=== PATIENT | male | born 1955 | race Caucasian/White ===

== ENCOUNTER 2020-01-02 16:56 | Inpatient (IN) ==
[2020-01-02] MEDS ORDERED: Naloxone 0.4 MG/ML INJ IVP PRN (22:36)
[2020-01-02 23:13] LABS: Basophils % 0.4 %; Eosinophils # 0.1 K/mcL (0.0-0.6); Eosinophils % 1.2 %; Hematocrit 38.5 % (37.5-50.1); Hemoglobin 13.3 g/dL (12.9-16.9); Immature Granulocytes % 0.2 % (0-4); Lymphocytes # 0.8 K/mcL (0.6-4.6); Lymphocytes % 16.6 %; Mean Corpuscular HGB Conc 34.5 g/dL (31.6-35.5); Mean Corpuscular Hemoglobin 28.7 pg (28.0-33.3); Mean Platelet Volume 11.9 fL (9.4-12.4); Monocytes # 0.4 K/mcL (0.0-1.3); Monocytes % 7.6 %; Neutrophils # 3.6 K/mcL (1.6-8.9); Platelet Count 165 K/mcL (140-400); Red Blood Count 4.64 M/mcL (4.19-5.50); Red Cell Distribution Width 13.3 % (11.5-14.5); White Blood Count 4.9 K/mcL (4.3-11.1)
[2020-01-02 23:32] LABS: Calcium 9.2 mg/dL (8.6-10.3); Potassium 4.3 mEq/L (3.5-5.1)
[2020-01-02] MEDS ORDERED: Insulin Human Regular 10 UNIT in 0.9 % Sodium Chloride 10 ML IV ONE (23:35)
[2020-01-02] MEDS ORDERED: Gadolinium Contrast Agent (WT Based) IV PRN (23:44)
[2020-01-03] MEDS ORDERED: *HR* Dextrose 50 % in Water (Vial) 50 ML VIAL IVP PRN (03:45)
[2020-01-03] MEDS ORDERED: D5% in Water 1,000 ML IVC PRN (03:45)
[2020-01-03] MEDS ORDERED: Dextrose Gel 15 GM/37.5 ML TUBE PO PRN ×2 (03:45)
[2020-01-03] MEDS ORDERED: Insulin LISPRO 300 UNITS/3 ML VIAL SQ SCH (06:00)
[2020-01-03 06:42] LABS: Basophils % 0.8 %; Eosinophils # 0.1 K/mcL (0.0-0.6); Eosinophils % 1.4 %; Hematocrit 36.7 % (37.5-50.1); Hemoglobin 12.4 g/dL (12.9-16.9); Immature Granulocytes % 0.4 % (0-4); Lymphocytes # 0.9 K/mcL (0.6-4.6); Lymphocytes % 18.9 %; Mean Corpuscular HGB Conc 33.8 g/dL (31.6-35.5); Mean Corpuscular Hemoglobin 28.2 pg (28.0-33.3); Mean Corpuscular Volume 83.4 fL (83.0-100.0); Mean Platelet Volume 12.3 fL (9.4-12.4); Monocytes # 0.5 K/mcL (0.0-1.3); Monocytes % 9.2 %; Neutrophils # 3.4 K/mcL (1.6-8.9); Platelet Count 148 K/mcL (140-400); Red Cell Distribution Width 13.2 % (11.5-14.5); Segmented Neutrophils % 69.3 %; White Blood Count 4.9 K/mcL (4.3-11.1)
[2020-01-03 07:03] LABS: Calcium 8.9 mg/dL (8.6-10.3); Potassium 4.2 mEq/L (3.5-5.1)
[2020-01-03] MEDS: Aspirin Enteric Coated 81 MG Tablet PO SCH (08:55)
[2020-01-03] MEDS: Spironolactone 25 MG TABLET PO SCH (08:55)
[2020-01-03] MEDS: Finasteride 5 MG TABLET PO SCH (08:55)
[2020-01-03] MEDS: Loratadine 10 MG TABLET PO SCH (08:56)
[2020-01-03] MEDS: Fenofibrate 54 MG TABLET PO SCH (08:56)
[2020-01-03] MEDS ORDERED: Insulin DETEMIR 100 UNIT/ML X5UNITS SQ ONE ×2 (09:00→18:00)
[2020-01-03] MEDS: DilTIAZem CD (24hr) 120 MG CAP.ER.24H PO SCH (09:02)
[2020-01-03] MEDS ORDERED: Acetaminophen 325 MG TABLET PO PRN (11:20)
[2020-01-03] MEDS: Insulin LISPRO 300 UNITS/3 ML VIAL SQ SCH ×3 (14:09→20:28)
[2020-01-03] MEDS: cefTRIAXone 1,000 MG in 0.9 % Sodium Chloride Mini Bag 100 ML IVPB SCH ×2 (14:10→22:22)
[2020-01-03 15:58] LABS: Bilirubin,Urine Negative (Negative); Blood,Urine Negative (Negative); Clarity,Urine Clear (Clear); Color,Urine Yellow (Yellow); Glucose,Urine (UA) >=1000 mg/dL (Normal); Ketones,Urine 10 mg/dL (Negative); Leukocyte Esterase,Urine Negative (Negative); Mucus,Urine Few per lpf (None-Few); Nitrite,Urine Negative (Negative); Protein,Urine >=300 mg/dL (Neg-Trace); Specific Gravity,Urine > 1.030 (1.010-1.025); Squamous Epithelial Cell,Urine Few per hpf (None-Few); Urobilinogen,Urine Normal (Normal); WBC,Urine 0-3 per hpf (0-3)
[2020-01-03] MEDS: *HR* OxyCODONE/APAP 5/325 TABLET PO PRN (16:29)
[2020-01-03] MEDS: Nicotine 21 MG PATCH.TD24 TD SCH (16:29)
[2020-01-03] MEDS: Pregabalin 75 MG CAPSULE PO SCH (20:28)
[2020-01-03] MEDS ORDERED: Insulin DETEMIR 100 UNIT/ML X5UNITS SQ SCH (21:00)
[2020-01-03] MEDS ORDERED: Morphine Sulfate 2 MG/ML SYRINGE IVP ONE (21:30)
[2020-01-04 03:41] LABS: Basophils % 0.8 %; Eosinophils # 0.1 K/mcL (0.0-0.6); Eosinophils % 2.3 %; Hematocrit 36.1 % (37.5-50.1); Hemoglobin 11.7 g/dL (12.9-16.9); Immature Granulocytes % 0.6 % (0-4); Lymphocytes # 0.9 K/mcL (0.6-4.6); Lymphocytes % 19.6 %; Mean Corpuscular HGB Conc 32.4 g/dL (31.6-35.5); Mean Corpuscular Hemoglobin 27.3 pg (28.0-33.3); Mean Corpuscular Volume 84.3 fL (83.0-100.0); Mean Platelet Volume 12.2 fL (9.4-12.4); Monocytes # 0.5 K/mcL (0.0-1.3); Monocytes % 11.4 %; Neutrophils # 3.1 K/mcL (1.6-8.9); Nucleated Red Blood Cells 0.4 /100 WBC (0); Platelet Count 155 K/mcL (140-400); Red Blood Count 4.28 M/mcL (4.19-5.50); Red Cell Distribution Width 13.4 % (11.5-14.5); Segmented Neutrophils % 65.3 %; White Blood Count 4.8 K/mcL (4.3-11.1)
[2020-01-04 03:44] LABS: Prothrombin Time 11.8 Seconds (9.4-12.1)
[2020-01-04 03:55] LABS: Estimated Average Glucose 352 mg/dl
[2020-01-04 03:59] LABS: Calcium 9.1 mg/dL (8.6-10.3); Potassium 4.1 mEq/L (3.5-5.1)
[2020-01-04] MEDS: Finasteride 5 MG TABLET PO SCH (09:24)
[2020-01-04] MEDS: *HR* OxyCODONE/APAP 5/325 TABLET PO PRN ×3 (09:24→21:14)
[2020-01-04] MEDS: Loratadine 10 MG TABLET PO SCH (09:24)
[2020-01-04] MEDS: Spironolactone 25 MG TABLET PO SCH (09:24)
[2020-01-04] MEDS: Fenofibrate 54 MG TABLET PO SCH (09:24)
[2020-01-04] MEDS: Aspirin Enteric Coated 81 MG Tablet PO SCH (09:24)
[2020-01-04] MEDS: Nicotine 21 MG PATCH.TD24 TD SCH (09:25)
[2020-01-04] MEDS: Pregabalin 75 MG CAPSULE PO SCH ×2 (09:25→20:59)
[2020-01-04] MEDS: DilTIAZem CD (24hr) 120 MG CAP.ER.24H PO SCH (09:25)
[2020-01-04] MEDS: Insulin LISPRO 300 UNITS/3 ML VIAL SQ SCH ×4 (09:27→22:47)
[2020-01-04] MEDS: cefTRIAXone 1,000 MG in 0.9 % Sodium Chloride Mini Bag 100 ML IVPB SCH ×2 (09:29→23:15)
[2020-01-04] MEDS: Nicotine 2 MG GUM BC PRN ×3 (11:51→15:39)
[2020-01-04] MEDS ORDERED: Insulin DETEMIR 100 UNIT/ML X5UNITS SQ SCH ×2 (21:00)
[2020-01-05 03:08] LABS: Basophils % 0.8 %; Eosinophils # 0.1 K/mcL (0.0-0.6); Eosinophils % 2.4 %; Hematocrit 34.5 % (37.5-50.1); Hemoglobin 11.2 g/dL (12.9-16.9); Immature Granulocytes % 0.5 % (0-4); Lymphocytes # 0.9 K/mcL (0.6-4.6); Lymphocytes % 23.9 %; Mean Corpuscular HGB Conc 32.5 g/dL (31.6-35.5); Mean Corpuscular Hemoglobin 27.1 pg (28.0-33.3); Mean Corpuscular Volume 83.5 fL (83.0-100.0); Mean Platelet Volume 12.2 fL (9.4-12.4); Monocytes # 0.5 K/mcL (0.0-1.3); Neutrophils # 2.2 K/mcL (1.6-8.9); Platelet Count 148 K/mcL (140-400); Red Blood Count 4.13 M/mcL (4.19-5.50); Red Cell Distribution Width 13.2 % (11.5-14.5); Segmented Neutrophils % 59.4 %; White Blood Count 3.7 K/mcL (4.3-11.1)
[2020-01-05 03:29] LABS: Potassium 4.7 mEq/L (3.5-5.1)
[2020-01-05] MEDS: Insulin LISPRO 300 UNITS/3 ML VIAL SQ SCH ×3 (08:15→20:31)
[2020-01-05] MEDS: Nicotine 21 MG PATCH.TD24 TD SCH (08:16)
[2020-01-05] MEDS: Aspirin Enteric Coated 81 MG Tablet PO SCH (08:18)
[2020-01-05] MEDS: Fenofibrate 54 MG TABLET PO SCH (08:18)
[2020-01-05] MEDS: DilTIAZem CD (24hr) 120 MG CAP.ER.24H PO SCH (08:18)
[2020-01-05] MEDS: Pregabalin 75 MG CAPSULE PO SCH ×2 (08:18→20:26)
[2020-01-05] MEDS: Finasteride 5 MG TABLET PO SCH (08:18)
[2020-01-05] MEDS: Loratadine 10 MG TABLET PO SCH (08:18)
[2020-01-05] MEDS ORDERED: Insulin DETEMIR 100 UNIT/ML X5UNITS SQ ONE (09:00)
[2020-01-05] MEDS: cefTRIAXone 1,000 MG in 0.9 % Sodium Chloride Mini Bag 100 ML IVPB SCH ×2 (12:16→23:06)
[2020-01-05] MEDS: *HR* OxyCODONE/APAP 5/325 TABLET PO PRN ×2 (12:47→20:43)
[2020-01-05] MEDS: 0.9 % Sodium Chloride 1,000 ML IVC SCH (15:03)
[2020-01-05 17:59] LABS: Protein/Creatinine Ratio,Urine 2.06 mg/mg (0.00-0.20); Sodium, Urine 44.4 mEq/L
[2020-01-05] MEDS ORDERED: Insulin DETEMIR 100 UNIT/ML X5UNITS SQ SCH (21:00)
[2020-01-05] MEDS ORDERED: Insulin LISPRO 300 UNITS/3 ML VIAL SQ ONE (22:03)
[2020-01-06 05:22] LABS: Basophils % 0.7 %; Eosinophils # 0.1 K/mcL (0.0-0.6); Eosinophils % 2.8 %; Hematocrit 36.8 % (37.5-50.1); Hemoglobin 12.1 g/dL (12.9-16.9); Lymphocytes # 0.8 K/mcL (0.6-4.6); Mean Corpuscular HGB Conc 32.9 g/dL (31.6-35.5); Mean Corpuscular Hemoglobin 28.1 pg (28.0-33.3); Mean Corpuscular Volume 85.4 fL (83.0-100.0); Mean Platelet Volume 12.7 fL (9.4-12.4); Monocytes # 0.4 K/mcL (0.0-1.3); Monocytes % 15.2 %; Neutrophils # 1.5 K/mcL (1.6-8.9); Platelet Count 146 K/mcL (140-400); Red Blood Count 4.31 M/mcL (4.19-5.50); Red Cell Distribution Width 13.3 % (11.5-14.5); Segmented Neutrophils % 51.3 %; White Blood Count 2.9 K/mcL (4.3-11.1)
[2020-01-06 05:41] LABS: Calcium 9.6 mg/dL (8.6-10.3); Potassium 4.4 mEq/L (3.5-5.1)
[2020-01-06 05:55] LABS: Albumin 3.2 g/dL (3.5-5.7); Calcium 9.6 mg/dL (8.6-10.3); Phosphorous 3.5 mg/dL (2.7-4.5); Potassium 4.4 mEq/L (3.5-5.1)
[2020-01-06 05:56] LABS: Thyroid Stimulating Hormone 0.877 mcIU/mL (0.340-5.600)
[2020-01-06 06:12] LABS: Folate 16.5 ng/mL (3.0-16.0); Vitamin B12 953 pg/mL (250-1100)
[2020-01-06] MEDS: 0.9 % Sodium Chloride 1,000 ML IVC SCH (07:00)
[2020-01-06] MEDS ORDERED: Insulin DETEMIR 100 UNIT/ML X5UNITS SQ ONE (07:57)
[2020-01-06] MEDS: DilTIAZem CD (24hr) 120 MG CAP.ER.24H PO SCH (08:40)
[2020-01-06] MEDS: Aspirin Enteric Coated 81 MG Tablet PO SCH (08:41)
[2020-01-06] MEDS: Finasteride 5 MG TABLET PO SCH (08:41)
[2020-01-06] MEDS: Pregabalin 75 MG CAPSULE PO SCH ×2 (08:41→20:21)
[2020-01-06] MEDS: Loratadine 10 MG TABLET PO SCH (08:41)
[2020-01-06] MEDS: Nicotine 21 MG PATCH.TD24 TD SCH (08:43)
[2020-01-06] MEDS: Insulin LISPRO 300 UNITS/3 ML VIAL SQ SCH ×4 (08:45→20:22)
[2020-01-06] MEDS ORDERED: Insulin DETEMIR 100 UNIT/ML X5UNITS SQ SCH ×2 (09:00→21:00)
[2020-01-06 09:04] LABS: Rheumatoid Factor < 10 IU/mL (Less than 14)
[2020-01-06] MEDS: *HR* OxyCODONE/APAP 5/325 TABLET PO PRN ×2 (11:12→20:29)
[2020-01-06] MEDS: cefTRIAXone 1,000 MG in 0.9 % Sodium Chloride Mini Bag 100 ML IVPB SCH ×2 (11:15→23:37)
[2020-01-06] MEDS ORDERED: *HR* HYDROmorphone 2 MG TABLET PO ONE (23:20)
[2020-01-07 04:59] LABS: Basophils % 0.8 %; Eosinophils # 0.1 K/mcL (0.0-0.6); Eosinophils % 2.7 %; Hematocrit 34.2 % (37.5-50.1); Hemoglobin 11.3 g/dL (12.9-16.9); Immature Granulocytes % 0.5 % (0-4); Lymphocytes # 0.9 K/mcL (0.6-4.6); Lymphocytes % 23.9 %; Mean Corpuscular Hemoglobin 27.2 pg (28.0-33.3); Mean Corpuscular Volume 82.4 fL (83.0-100.0); Mean Platelet Volume 12.1 fL (9.4-12.4); Monocytes # 0.4 K/mcL (0.0-1.3); Monocytes % 11.4 %; Neutrophils # 2.2 K/mcL (1.6-8.9); Platelet Count 160 K/mcL (140-400); Red Blood Count 4.15 M/mcL (4.19-5.50); Red Cell Distribution Width 13.1 % (11.5-14.5); Segmented Neutrophils % 60.7 %; White Blood Count 3.7 K/mcL (4.3-11.1)
[2020-01-07 05:20] LABS: Calcium 9.1 mg/dL (8.6-10.3); Potassium 4.3 mEq/L (3.5-5.1)
[2020-01-07] MEDS: Aspirin Enteric Coated 81 MG Tablet PO SCH (08:44)
[2020-01-07] MEDS: Finasteride 5 MG TABLET PO SCH (08:44)
[2020-01-07] MEDS: DilTIAZem CD (24hr) 120 MG CAP.ER.24H PO SCH (08:44)
[2020-01-07] MEDS: *HR* OxyCODONE/APAP 5/325 TABLET PO PRN ×3 (08:44→22:12)
[2020-01-07] MEDS: Pregabalin 75 MG CAPSULE PO SCH ×2 (08:44→22:12)
[2020-01-07] MEDS: Loratadine 10 MG TABLET PO SCH (08:44)
[2020-01-07] MEDS: Nicotine 21 MG PATCH.TD24 TD SCH (08:45)
[2020-01-07] MEDS: Insulin LISPRO 300 UNITS/3 ML VIAL SQ SCH ×5 (08:45→21:32)
[2020-01-07] MEDS ORDERED: Insulin DETEMIR 100 UNIT/ML X5UNITS SQ SCH (09:00)
[2020-01-07] MEDS: cefTRIAXone 1,000 MG in 0.9 % Sodium Chloride Mini Bag 100 ML IVPB SCH (10:56)
[2020-01-07] MEDS: metroNIDAZOLE 500 MG TABLET PO SCH ×2 (15:46→22:12)
[2020-01-07] MEDS: Cefepime HCl 2,000 MG in Water for inj. (sterile) 20 ML IVP SCH (15:46)
[2020-01-07] MEDS: DAPTOmycin 500 MG in 0.9 % Sodium Chloride 100 ML IVPB SCH (15:46)
[2020-01-07 16:18] LABS: Serine Protease-3 Antibody 5 AU/mL (0-19)
[2020-01-07 17:49] LABS: ANA IgG by ELISA NONE DETECTED (None Detected)
[2020-01-07] MEDS: Insulin DETEMIR 100 UNIT/ML X5UNITS SQ SCH (22:12)
[2020-01-08] MEDS: Cefepime HCl 2,000 MG in Water for inj. (sterile) 20 ML IVP SCH (01:56)
[2020-01-08 07:48] LABS: Basophils % 0.6 %; Eosinophils # 0.1 K/mcL (0.0-0.6); Eosinophils % 2.3 %; Hematocrit 38.1 % (37.5-50.1); Hemoglobin 12.6 g/dL (12.9-16.9); Immature Granulocytes % 0.6 % (0-4); Lymphocytes # 1.1 K/mcL (0.6-4.6); Lymphocytes % 22.3 %; Mean Corpuscular HGB Conc 33.1 g/dL (31.6-35.5); Mean Corpuscular Hemoglobin 28.2 pg (28.0-33.3); Mean Corpuscular Volume 85.2 fL (83.0-100.0); Mean Platelet Volume 12.7 fL (9.4-12.4); Monocytes # 0.5 K/mcL (0.0-1.3); Platelet Count 169 K/mcL (140-400); Red Blood Count 4.47 M/mcL (4.19-5.50); Red Cell Distribution Width 13.3 % (11.5-14.5); Segmented Neutrophils % 63.2 %; White Blood Count 4.7 K/mcL (4.3-11.1)
[2020-01-08 08:07] LABS: Calcium 9.7 mg/dL (8.6-10.3); Potassium 4.3 mEq/L (3.5-5.1)
[2020-01-08] MEDS: Pregabalin 75 MG CAPSULE PO SCH ×2 (08:17→20:51)
[2020-01-08] MEDS: DilTIAZem CD (24hr) 120 MG CAP.ER.24H PO SCH (08:17)
[2020-01-08] MEDS: Nicotine 21 MG PATCH.TD24 TD SCH (08:18)
[2020-01-08] MEDS: Aspirin Enteric Coated 81 MG Tablet PO SCH (08:18)
[2020-01-08] MEDS: Finasteride 5 MG TABLET PO SCH (08:18)
[2020-01-08] MEDS: Loratadine 10 MG TABLET PO SCH (08:18)
[2020-01-08] MEDS: Insulin LISPRO 300 UNITS/3 ML VIAL SQ SCH ×7 (08:21→21:51)
[2020-01-08] MEDS: Insulin DETEMIR 100 UNIT/ML X5UNITS SQ SCH ×2 (08:32→21:49)
[2020-01-08] MEDS: metroNIDAZOLE 500 MG TABLET PO SCH ×3 (08:33→20:50)
[2020-01-08] MEDS: *HR* OxyCODONE/APAP 5/325 TABLET PO PRN ×3 (08:42→21:47)
[2020-01-08] MEDS: levoFLOXacin 750 MG/150 ML 750 MG/150 ML BAG IVPB SCH (10:12)
[2020-01-08 11:05] LABS: Complement C3 161 mg/dL (87-200)
[2020-01-08] MEDS: 0.9 % Sodium Chloride 1,000 ML IVC SCH ×2 (11:52→21:47)
[2020-01-08] MEDS: DAPTOmycin 500 MG in 0.9 % Sodium Chloride 100 ML IVPB SCH (15:25)
[2020-01-09 00:51] LABS: Hematocrit 34.9 % (37.5-50.1); Hemoglobin 11.1 g/dL (12.9-16.9); Mean Corpuscular HGB Conc 31.8 g/dL (31.6-35.5); Mean Corpuscular Volume 84.9 fL (83.0-100.0); Mean Platelet Volume 12.1 fL (9.4-12.4); Platelet Count 162 K/mcL (140-400); Red Blood Count 4.11 M/mcL (4.19-5.50); Red Cell Distribution Width 13.3 % (11.5-14.5); White Blood Count 3.8 K/mcL (4.3-11.1)
[2020-01-09 01:06] LABS: Calcium 9.1 mg/dL (8.6-10.3); Potassium 4.5 mEq/L (3.5-5.1)
[2020-01-09] MEDS: Loratadine 10 MG TABLET PO SCH (08:36)
[2020-01-09] MEDS: metroNIDAZOLE 500 MG TABLET PO SCH ×3 (08:36→21:02)
[2020-01-09] MEDS: Aspirin Enteric Coated 81 MG Tablet PO SCH (08:36)
[2020-01-09] MEDS: DilTIAZem CD (24hr) 120 MG CAP.ER.24H PO SCH (08:36)
[2020-01-09] MEDS: Pregabalin 75 MG CAPSULE PO SCH ×2 (08:37→21:02)
[2020-01-09] MEDS: Nicotine 21 MG PATCH.TD24 TD SCH (08:37)
[2020-01-09] MEDS: Finasteride 5 MG TABLET PO SCH (08:37)
[2020-01-09] MEDS: Insulin LISPRO 300 UNITS/3 ML VIAL SQ SCH ×7 (08:38→21:03)
[2020-01-09] MEDS: *HR* OxyCODONE/APAP 5/325 TABLET PO PRN ×3 (09:31→23:39)
[2020-01-09] MEDS: Insulin DETEMIR 100 UNIT/ML X5UNITS SQ SCH ×2 (09:31→21:02)
[2020-01-09] MEDS: DAPTOmycin 500 MG in 0.9 % Sodium Chloride 100 ML IVPB SCH (10:35)
[2020-01-09] MEDS: levoFLOXacin 750 MG/150 ML 750 MG/150 ML BAG IVPB SCH (11:16)
[2020-01-09] MEDS ORDERED: 0.9 % Sodium Chloride 1,000 ML IVC SCH (21:45)
[2020-01-10 07:41] LABS: Albumin 3.1 g/dL (3.5-5.7); Basophils % 0.7 %; Calcium 9.1 mg/dL (8.6-10.3); Eosinophils # 0.1 K/mcL (0.0-0.6); Eosinophils % 2.4 %; Hematocrit 34.1 % (37.5-50.1); Hemoglobin 11.2 g/dL (12.9-16.9); Immature Granulocytes % 0.5 % (0-4); Lymphocytes % 23.3 %; Magnesium 1.8 mg/dL (1.6-2.6); Mean Corpuscular HGB Conc 32.8 g/dL (31.6-35.5); Mean Corpuscular Hemoglobin 27.8 pg (28.0-33.3); Mean Corpuscular Volume 84.6 fL (83.0-100.0); Mean Platelet Volume 12.6 fL (9.4-12.4); Monocytes # 0.6 K/mcL (0.0-1.3); Monocytes % 13.5 %; Neutrophils # 2.5 K/mcL (1.6-8.9); Phosphorous 2.4 mg/dL (2.7-4.5); Platelet Count 161 K/mcL (140-400); Red Blood Count 4.03 M/mcL (4.19-5.50); Red Cell Distribution Width 13.5 % (11.5-14.5); Segmented Neutrophils % 59.6 %; White Blood Count 4.2 K/mcL (4.3-11.1)
[2020-01-10] MEDS ORDERED: levoFLOXacin 750 MG/150 ML 750 MG/150 ML BAG IVPB SCH (10:00)
[2020-01-10] MEDS: metroNIDAZOLE 500 MG TABLET PO SCH ×3 (10:04→21:13)
[2020-01-10] MEDS: DilTIAZem CD (24hr) 120 MG CAP.ER.24H PO SCH (10:04)
[2020-01-10] MEDS: *HR* OxyCODONE/APAP 5/325 TABLET PO PRN ×2 (10:05→17:52)
[2020-01-10] MEDS: Aspirin Enteric Coated 81 MG Tablet PO SCH (10:05)
[2020-01-10] MEDS: Nicotine 21 MG PATCH.TD24 TD SCH (10:05)
[2020-01-10] MEDS: Pregabalin 75 MG CAPSULE PO SCH ×2 (10:05→21:12)
[2020-01-10] MEDS: Loratadine 10 MG TABLET PO SCH (10:05)
[2020-01-10] MEDS: Finasteride 5 MG TABLET PO SCH (10:05)
[2020-01-10] MEDS: Insulin LISPRO 300 UNITS/3 ML VIAL SQ SCH ×7 (10:10→21:15)
[2020-01-10] MEDS: Insulin DETEMIR 100 UNIT/ML X5UNITS SQ SCH ×2 (10:10→21:18)
[2020-01-10] MEDS: DAPTOmycin 500 MG in 0.9 % Sodium Chloride 100 ML IVPB SCH (15:31)
[2020-01-11] MEDS: *HR* OxyCODONE/APAP 5/325 TABLET PO PRN ×3 (01:47→17:05)
[2020-01-11 06:18] LABS: Calcium 9.1 mg/dL (8.6-10.3); Potassium 4.1 mEq/L (3.5-5.1)
[2020-01-11] MEDS: Loratadine 10 MG TABLET PO SCH (08:34)
[2020-01-11] MEDS: metroNIDAZOLE 500 MG TABLET PO SCH ×3 (08:34→20:36)
[2020-01-11] MEDS: Pregabalin 75 MG CAPSULE PO SCH ×2 (08:34→20:36)
[2020-01-11] MEDS: Finasteride 5 MG TABLET PO SCH (08:34)
[2020-01-11] MEDS: Aspirin Enteric Coated 81 MG Tablet PO SCH (08:34)
[2020-01-11] MEDS: Nicotine 21 MG PATCH.TD24 TD SCH (08:35)
[2020-01-11] MEDS: DilTIAZem CD (24hr) 120 MG CAP.ER.24H PO SCH (08:35)
[2020-01-11] MEDS: Insulin DETEMIR 100 UNIT/ML X5UNITS SQ SCH ×2 (08:39→20:39)
[2020-01-11] MEDS: Insulin LISPRO 300 UNITS/3 ML VIAL SQ SCH ×7 (08:40→20:40)
[2020-01-11] MEDS ORDERED: levoFLOXacin 750 MG/150 ML 750 MG/150 ML BAG IVPB SCH ×2 (10:00→11:00)
[2020-01-11] MEDS: DAPTOmycin 500 MG in 0.9 % Sodium Chloride 100 ML IVPB SCH (14:32)
[2020-01-12 01:26] LABS: Basophils # 0.1 K/mcL (0.0-0.2); Basophils % 1.1 %; Eosinophils # 0.1 K/mcL (0.0-0.6); Eosinophils % 2.5 %; Hematocrit 34.2 % (37.5-50.1); Hemoglobin 11.5 g/dL (12.9-16.9); Immature Granulocytes % 0.5 % (0-4); Lymphocytes # 1.1 K/mcL (0.6-4.6); Mean Corpuscular HGB Conc 33.6 g/dL (31.6-35.5); Mean Corpuscular Hemoglobin 28.3 pg (28.0-33.3); Mean Corpuscular Volume 84.2 fL (83.0-100.0); Mean Platelet Volume 12.3 fL (9.4-12.4); Monocytes # 0.5 K/mcL (0.0-1.3); Monocytes % 11.3 %; Neutrophils # 2.7 K/mcL (1.6-8.9); Platelet Count 171 K/mcL (140-400); Red Blood Count 4.06 M/mcL (4.19-5.50); Red Cell Distribution Width 13.4 % (11.5-14.5); Segmented Neutrophils % 59.6 %; White Blood Count 4.4 K/mcL (4.3-11.1)
[2020-01-12 01:39] LABS: Calcium 9.5 mg/dL (8.6-10.3); Potassium 4.2 mEq/L (3.5-5.1)
[2020-01-12] MEDS: *HR* OxyCODONE/APAP 5/325 TABLET PO PRN ×3 (02:14→14:21)
[2020-01-12 07:14] VITALS: BP 158/76
[2020-01-12] MEDS: DilTIAZem CD (24hr) 120 MG CAP.ER.24H PO SCH (08:19)
[2020-01-12] MEDS: Loratadine 10 MG TABLET PO SCH (08:19)
[2020-01-12] MEDS: Pregabalin 75 MG CAPSULE PO SCH (08:19)
[2020-01-12] MEDS: Finasteride 5 MG TABLET PO SCH (08:19)
[2020-01-12] MEDS: Aspirin Enteric Coated 81 MG Tablet PO SCH (08:20)
[2020-01-12] MEDS: Nicotine 21 MG PATCH.TD24 TD SCH (08:20)
[2020-01-12] MEDS: Insulin LISPRO 300 UNITS/3 ML VIAL SQ SCH ×4 (08:22→12:33)
[2020-01-12] MEDS: Insulin DETEMIR 100 UNIT/ML X5UNITS SQ SCH (08:27)
[2020-01-12] MEDS: metroNIDAZOLE 500 MG TABLET PO SCH (08:27)
== END 2020-01-12 14:38 | disposition home or self-care (01) | DRG 623 ==
LOC: 3NENU → SUATTDRO 19:14
PROVIDERS: ADMIT Internal Medicine; ATTEND Family Medicine

== ENCOUNTER 2022-01-04 15:13 | Inpatient (IN) ==
[2022-01-04] MEDS ORDERED: Naloxone 0.4 MG/ML INJ IVP PRN (18:10)
[2022-01-04] MEDS ORDERED: D5% in Water 1,000 ML IVC PRN (18:10)
[2022-01-04] MEDS ORDERED: *HR* Heparin 5,000 UNIT/ML VIAL IVP ONE (18:10)
[2022-01-04] MEDS ORDERED: *HR* Heparin 5,000 UNIT/ML VIAL IVP PRN (18:10)
[2022-01-04] MEDS ORDERED: Ondansetron 4 MG/2 ML VIAL IVP PRN (18:10)
[2022-01-04] MEDS ORDERED: Dextrose Gel 15 GM/37.5 ML TUBE PO PRN ×2 (18:10)
[2022-01-04] MEDS ORDERED: Nicotine 21 MG PATCH.TD24 TD PRN (18:32)
[2022-01-04] MEDS ORDERED: Furosemide 40 MG/4 ML VIAL IVP ONE (18:33)
[2022-01-04] MEDS ORDERED: methylPREDNISolone 125 MG/2 ML VIAL IVP ONE (18:33)
[2022-01-04] MEDS: Heparin 25,000UNIT/250ML 1/2NS 25,000 UNIT/250 ML IV.SOLN IVC SCH (19:11)
[2022-01-04 19:23] LABS: Hemoglobin 11.8 g/dL (12.9-16.9); Mean Corpuscular Hemoglobin 29.3 pg (28.0-33.3); Red Blood Count 4.03 M/mcL (4.19-5.50)
[2022-01-04 19:25] LABS: Hematocrit 36.4 % (37.5-50.1); Immature Platelets 19.2 % (1.1-6.1); Mean Corpuscular HGB Conc 32.4 g/dL (31.6-35.5); Mean Corpuscular Volume 90.3 fL (83.0-100.0); Mean Platelet Volume 13.9 fL (9.4-12.4); Red Cell Distribution Width 13.9 % (11.5-14.5); White Blood Count 5.8 K/mcL (4.3-11.1)
[2022-01-04 19:28] LABS: INR 1.1; Prothrombin Time 12.2 Seconds (9.4-12.1)
[2022-01-04 19:29] LABS: Heparin anti-factor XA UFH 0.66 IU/mL (0.30-0.70)
[2022-01-04] MEDS: Ipratropium/Albuterol Neb 3 ML IH SCH ×2 (20:28→22:23)
[2022-01-04] MEDS ORDERED: Insulin LISPRO 300 UNITS/3 ML VIAL SUBQ SCH (21:00)
[2022-01-04 21:54] LABS: ABG Base Excess -4 mEq/L (-2 to 3); ABG HCO3 23 mEq/L (21-27); ABG Oxygen Saturation 94 % (95-98); ABG PCO2 47 mmHg (35-45); ABG PH 7.29 pH Units (7.32-7.45); ABG PO2 78 mmHg (85-104); ABG TCO2 24 mEq/L (20-26)
[2022-01-04] MEDS ORDERED: *HR* LORazepam 2 MG/ML VIAL IVP ONE (21:58)
[2022-01-04 22:33] LABS: Calcium 9.8 mg/dL (8.6-10.3)
[2022-01-05] MEDS: MethylPREDNISolone 40 MG/ML VIAL IVP SCH ×4 (00:03→18:07)
[2022-01-05 02:11] LABS: Calcium 9.2 mg/dL (8.6-10.3); Chol/HDL Ratio 3.7 (0-4.9); Magnesium 2.3 mg/dL (1.6-2.6); Phosphorous 4.4 mg/dL (2.7-4.5); Potassium 5.3 mEq/L (3.5-5.1)
[2022-01-05 02:13] LABS: Hematocrit 36.1 % (37.5-50.1); Hemoglobin 11.7 g/dL (12.9-16.9); Mean Corpuscular HGB Conc 32.4 g/dL (31.6-35.5); Mean Corpuscular Hemoglobin 29.1 pg (28.0-33.3); Mean Corpuscular Volume 89.8 fL (83.0-100.0); Mean Platelet Volume 14.3 fL (9.4-12.4); Red Blood Count 4.02 M/mcL (4.19-5.50); Red Cell Distribution Width 13.9 % (11.5-14.5); White Blood Count 4.8 K/mcL (4.3-11.1)
[2022-01-05] MEDS: Azithromycin 250 MG TABLET PO SCH (02:34)
[2022-01-05] MEDS: Insulin LISPRO 300 UNITS/3 ML VIAL SUBQ SCH ×4 (02:35→17:24)
[2022-01-05 02:39] LABS: Adenovirus Not Detected (Not Detect); Coronavirus 229E Not Detected (Not Detect); Coronavirus HKU1 Not Detected (Not Detect); Coronavirus NL63 Not Detected (Not Detect); Coronavirus OC43 Not Detected (Not Detect)
[2022-01-05 02:40] LABS: Bordetella Pertussis Not Detected (Not Detect); Chlamydophila pneumoniae Not Detected (Not Detect); Human Metapneumovirus Not Detected (Not Detect); Human Rhinovirus/Enterovirus Not Detected (Not Detect); Influenza A Subtype 2009 H1 Not Detected (Not Detect); Influenza B Not Detected (Not Detect); Mycoplasma pneumoniae Not Detected (Not Detect); Parainfluenza Virus 1 Not Detected (Not Detect); Parainfluenza Virus 2 Not Detected (Not Detect); Parainfluenza Virus 3 Not Detected (Not Detect); Parainfluenza Virus 4 Not Detected (Not Detect); Respiratory Syncytial Virus Not Detected (Not Detect); SARS-CoV-2 Not Detected (Not Detect)
[2022-01-05] MEDS ORDERED: Insulin DETEMIR 100 UNIT/ML X5UNITS SUBQ SCH ×2 (02:45→09:00)
[2022-01-05] MEDS: Ipratropium/Albuterol Neb 3 ML IH SCH ×4 (03:38→22:59)
[2022-01-05] MEDS: *HR* Heparin 5,000 UNIT/ML VIAL IVP PRN ×3 (04:35→20:11)
[2022-01-05] MEDS: cefTRIAXone 1,000 MG in 0.9 % Sodium Chloride 10 ML IVP SCH (08:38)
[2022-01-05] MEDS: Nicotine 7 MG PATCH.TD24 TD SCH (10:07)
[2022-01-05] MEDS ORDERED: Furosemide 20 MG/2 ML VIAL IVP ONE (10:07)
[2022-01-05] MEDS: Insulin DETEMIR 100 UNIT/ML X5UNITS SUBQ SCH ×2 (14:40→19:47)
[2022-01-05] MEDS: DilTIAZem CD (24hr) 120 MG CAP.ER.24H PO SCH (14:54)
[2022-01-05] MEDS ORDERED: Furosemide 40 MG/4 ML VIAL IVP ONE (15:00)
[2022-01-05] MEDS: Heparin 25,000UNIT/250ML 1/2NS 25,000 UNIT/250 ML IV.SOLN IVC SCH (19:45)
[2022-01-05] MEDS: Pregabalin 75 MG CAPSULE PO SCH (19:47)
[2022-01-06] MEDS: MethylPREDNISolone 40 MG/ML VIAL IVP SCH ×4 (01:07→18:25)
[2022-01-06] MEDS: Azithromycin 250 MG TABLET PO SCH ×2 (01:08→23:33)
[2022-01-06 02:52] LABS: Basophils % 0.1 %; Immature Granulocytes % 0.3 % (0-4)
[2022-01-06 02:54] LABS: Hematocrit 35.6 % (37.5-50.1); Hemoglobin 11.2 g/dL (12.9-16.9); Immature Platelets 20.8 % (1.1-6.1); Lymphocytes # 0.3 K/mcL (0.6-4.6); Lymphocytes % 3.5 %; Mean Corpuscular HGB Conc 31.5 g/dL (31.6-35.5); Mean Corpuscular Volume 92.2 fL (83.0-100.0); Monocytes # 0.3 K/mcL (0.0-1.3); Monocytes % 3.5 %; Neutrophils # 7.2 K/mcL (1.6-8.9); Platelet Count 116 K/mcL (140-400); Red Blood Count 3.86 M/mcL (4.19-5.50); Segmented Neutrophils % 92.6 %; White Blood Count 7.8 K/mcL (4.3-11.1)
[2022-01-06 03:09] LABS: Calcium 9.1 mg/dL (8.6-10.3); Potassium 4.7 mEq/L (3.5-5.1)
[2022-01-06] MEDS: Ipratropium/Albuterol Neb 3 ML IH SCH ×4 (04:12→22:27)
[2022-01-06] MEDS: Insulin LISPRO 300 UNITS/3 ML VIAL SUBQ SCH ×5 (07:41→19:59)
[2022-01-06] MEDS: DilTIAZem CD (24hr) 120 MG CAP.ER.24H PO SCH (08:39)
[2022-01-06] MEDS: Pregabalin 75 MG CAPSULE PO SCH ×2 (08:39→19:59)
[2022-01-06] MEDS: Nicotine 7 MG PATCH.TD24 TD SCH (08:39)
[2022-01-06] MEDS: cefTRIAXone 1,000 MG in 0.9 % Sodium Chloride 10 ML IVP SCH (08:40)
[2022-01-06] MEDS: Insulin DETEMIR 100 UNIT/ML X5UNITS SUBQ SCH ×2 (09:28→19:59)
[2022-01-06] MEDS: Heparin 25,000UNIT/250ML 1/2NS 25,000 UNIT/250 ML IV.SOLN IVC SCH (10:50)
[2022-01-06] MEDS ORDERED: Furosemide 40 MG/4 ML VIAL IVP ONE (11:46)
[2022-01-06] MEDS: Aspirin 325 MG TABLET PO SCH (12:03)
[2022-01-06] MEDS ORDERED: Metoprolol XL (24 HR) Succ 25 MG TAB.ER.24H PO SCH (21:00)
[2022-01-07] MEDS: Heparin 25,000UNIT/250ML 1/2NS 25,000 UNIT/250 ML IV.SOLN IVC SCH ×2 (01:04→19:58)
[2022-01-07] MEDS: Ipratropium/Albuterol Neb 3 ML IH SCH ×4 (04:25→20:09)
[2022-01-07] MEDS: MethylPREDNISolone 40 MG/ML VIAL IVP SCH (04:36)
[2022-01-07] MEDS: cefTRIAXone 1,000 MG in 0.9 % Sodium Chloride 10 ML IVP SCH (07:18)
[2022-01-07] MEDS: Aspirin 325 MG TABLET PO SCH (07:18)
[2022-01-07] MEDS: Pregabalin 75 MG CAPSULE PO SCH ×2 (07:18→21:47)
[2022-01-07] MEDS: Nicotine 7 MG PATCH.TD24 TD SCH (07:19)
[2022-01-07] MEDS: Insulin LISPRO 300 UNITS/3 ML VIAL SUBQ SCH ×4 (07:25→22:03)
[2022-01-07] MEDS: Insulin DETEMIR 100 UNIT/ML X5UNITS SUBQ SCH ×2 (08:04→22:03)
[2022-01-07 08:39] LABS: Hematocrit 36.4 % (37.5-50.1); Hemoglobin 11.8 g/dL (12.9-16.9); Immature Granulocytes % 0.2 % (0-4); Lymphocytes # 0.2 K/mcL (0.6-4.6); Lymphocytes % 2.2 %; Mean Corpuscular HGB Conc 32.4 g/dL (31.6-35.5); Mean Corpuscular Hemoglobin 28.9 pg (28.0-33.3); Monocytes # 0.2 K/mcL (0.0-1.3); Monocytes % 2.1 %; Neutrophils # 7.7 K/mcL (1.6-8.9); Red Blood Count 4.09 M/mcL (4.19-5.50); Red Cell Distribution Width 13.7 % (11.5-14.5); Segmented Neutrophils % 95.5 %; White Blood Count 8.1 K/mcL (4.3-11.1)
[2022-01-07 08:46] LABS: Calcium 8.8 mg/dL (8.6-10.3); Potassium 5.2 mEq/L (3.5-5.1)
[2022-01-07 09:31] LABS: Platelet Count 99 K/mcL (140-400)
[2022-01-07 09:34] LABS: Platelet Estimate Slight Decrease (Normal)
[2022-01-07] MEDS ORDERED: Insulin Human Regular 10 UNIT in 0.9 % Sodium Chloride 10 ML IV ONE (10:00)
[2022-01-07] MEDS ORDERED: SODIUM ZIRCONIUM CYCLOSILICATE 5 GM POWD.PACK PO ONE (10:00)
[2022-01-07] MEDS: predniSONE 20 MG TABLET PO SCH (12:19)
[2022-01-07] MEDS: Albumin 25% 25gram/100mL 25 GM/100 ML IV.SOLN IVPB SCH ×2 (16:16→23:02)
[2022-01-07 17:16] LABS: Calcium 8.9 mg/dL (8.6-10.3); Potassium 4.9 mEq/L (3.5-5.1)
[2022-01-07 20:42] LABS: Bilirubin,Urine Negative (Negative); Blood,Urine Negative (Negative); Clarity,Urine Clear (Clear); Color,Urine Light-Yellow (Yellow); Glucose,Urine (UA) >=1000 mg/dL (Normal); Ketones,Urine Negative (Negative); Leukocyte Esterase,Urine Negative (Negative); Mucus,Urine Few per lpf (None-Few); Nitrite,Urine Negative (Negative); Protein,Urine >=300 mg/dL (Neg-Trace); RBC,Urine 0-3 per hpf (0-3); Specific Gravity,Urine 1.025 (1.010-1.025); Sperm,Urine Present per hpf (None Seen); Squamous Epithelial Cell,Urine Few per hpf (None-Few); Urobilinogen,Urine Normal (Normal)
[2022-01-07] MEDS ORDERED: Metoprolol XL (24 HR) Succ 25 MG TAB.ER.24H PO SCH (21:00)
[2022-01-07 23:09] LABS: Microalbumin,Urine > 1350 mg/L
[2022-01-07 23:10] LABS: Creatinine,Urine 88 mg/dL; Sodium, Urine 28.8 mEq/L
[2022-01-08] MEDS: Azithromycin 250 MG TABLET PO SCH (00:35)
[2022-01-08] MEDS: Ipratropium/Albuterol Neb 3 ML IH SCH ×7 (00:42→23:45)
[2022-01-08 01:40] LABS: Hemoglobin 11.8 g/dL (12.9-16.9)
[2022-01-08 01:42] LABS: Immature Granulocytes % 0.6 % (0-4); Immature Platelets 23.7 % (1.1-6.1); Lymphocytes # 0.2 K/mcL (0.6-4.6); Lymphocytes % 1.8 %; Mean Corpuscular HGB Conc 31.9 g/dL (31.6-35.5); Mean Corpuscular Hemoglobin 29.1 pg (28.0-33.3); Mean Corpuscular Volume 91.4 fL (83.0-100.0); Monocytes # 0.5 K/mcL (0.0-1.3); Monocytes % 5.7 %; Neutrophils # 7.7 K/mcL (1.6-8.9); Platelet Count 103 K/mcL (140-400); Red Blood Count 4.05 M/mcL (4.19-5.50); Red Cell Distribution Width 13.7 % (11.5-14.5); Segmented Neutrophils % 91.9 %; White Blood Count 8.4 K/mcL (4.3-11.1)
[2022-01-08 02:04] LABS: Calcium 9.2 mg/dL (8.6-10.3); Potassium 4.9 mEq/L (3.5-5.1)
[2022-01-08 02:12] LABS: Phosphorous 3.8 mg/dL (2.7-4.5); Uric Acid 8.5 mg/dL (2.3-7.6)
[2022-01-08 02:15] LABS: Thyroid Stimulating Hormone 0.383 mcIU/mL (0.340-5.600)
[2022-01-08 02:24] LABS: Folate 13.3 ng/mL (3.0-16.0)
[2022-01-08 02:40] LABS: Platelet Estimate Decreased (Normal)
[2022-01-08] MEDS: Nicotine 7 MG PATCH.TD24 TD SCH (07:47)
[2022-01-08] MEDS: cefTRIAXone 1,000 MG in 0.9 % Sodium Chloride 10 ML IVP SCH (07:48)
[2022-01-08] MEDS: Pregabalin 75 MG CAPSULE PO SCH ×2 (07:48→20:02)
[2022-01-08] MEDS: Aspirin 325 MG TABLET PO SCH (07:48)
[2022-01-08] MEDS: predniSONE 20 MG TABLET PO SCH (07:48)
[2022-01-08] MEDS: Insulin DETEMIR 100 UNIT/ML X5UNITS SUBQ SCH ×2 (07:48→21:41)
[2022-01-08] MEDS: Insulin LISPRO 300 UNITS/3 ML VIAL SUBQ SCH ×4 (07:49→21:42)
[2022-01-08] MEDS: Albumin 25% 25gram/100mL 25 GM/100 ML IV.SOLN IVPB SCH ×2 (07:49→16:04)
[2022-01-08] MEDS ORDERED: Furosemide 40 MG/4 ML VIAL IVP ONE (10:11)
[2022-01-08] MEDS: Metoprolol XL (24 HR) Succ 25 MG TAB.ER.24H PO SCH ×2 (12:32→20:02)
[2022-01-08] MEDS: *HR* Heparin 5,000 UNIT/ML VIAL SQ SCH (20:01)
[2022-01-08] MEDS ORDERED: *HR* LORazepam 2 MG/ML VIAL IVP ONE (21:23)
[2022-01-09 02:36] LABS: Hematocrit 36.3 % (37.5-50.1); Hemoglobin 11.6 g/dL (12.9-16.9); Red Cell Distribution Width 13.7 % (11.5-14.5)
[2022-01-09 02:38] LABS: Basophils % 0.2 %; Eosinophils % 0.2 %; Immature Granulocytes % 0.5 % (0-4); Immature Platelets 23.1 % (1.1-6.1); Lymphocytes # 0.6 K/mcL (0.6-4.6); Lymphocytes % 8.5 %; Mean Corpuscular Hemoglobin 29.2 pg (28.0-33.3); Mean Corpuscular Volume 91.4 fL (83.0-100.0); Mean Platelet Volume 13.2 fL (9.4-12.4); Monocytes # 0.5 K/mcL (0.0-1.3); Monocytes % 6.8 %; Neutrophils # 5.5 K/mcL (1.6-8.9); Red Blood Count 3.97 M/mcL (4.19-5.50); Segmented Neutrophils % 83.8 %; White Blood Count 6.6 K/mcL (4.3-11.1)
[2022-01-09 02:53] LABS: Albumin 4.2 g/dL (3.5-5.7); Albumin/Globulin Ratio 1.8 (1.1-2.2); Bilirubin,Total 0.4 mg/dL (0.3-1.0); Calcium 8.9 mg/dL (8.6-10.3); Globulin 2.4 g/dL (2.4-3.5); Potassium 4.4 mEq/L (3.5-5.1); Total Protein 6.6 g/dL (6.4-8.9)
[2022-01-09 03:25] LABS: Platelet Count 88 K/mcL (140-400)
[2022-01-09 03:39] LABS: Estimated Average Glucose 249 mg/dl; Hemoglobin A1C 10.3 %
[2022-01-09] MEDS: Ipratropium/Albuterol Neb 3 ML IH SCH ×6 (04:35→23:34)
[2022-01-09] MEDS: *HR* Heparin 5,000 UNIT/ML VIAL SQ SCH ×2 (04:56→17:44)
[2022-01-09] MEDS: Aspirin 325 MG TABLET PO SCH (08:39)
[2022-01-09] MEDS: Azithromycin 250 MG TABLET PO SCH (08:39)
[2022-01-09] MEDS: Pregabalin 75 MG CAPSULE PO SCH ×2 (08:39→19:54)
[2022-01-09] MEDS: predniSONE 20 MG TABLET PO SCH (08:39)
[2022-01-09] MEDS: Metoprolol XL (24 HR) Succ 25 MG TAB.ER.24H PO SCH ×2 (08:39→19:54)
[2022-01-09] MEDS: Nicotine 7 MG PATCH.TD24 TD SCH (08:39)
[2022-01-09] MEDS: cefTRIAXone 1,000 MG in 0.9 % Sodium Chloride 10 ML IVP SCH (08:40)
[2022-01-09] MEDS: Insulin LISPRO 300 UNITS/3 ML VIAL SUBQ SCH ×4 (09:58→19:56)
[2022-01-09] MEDS: Insulin DETEMIR 100 UNIT/ML X5UNITS SUBQ SCH ×2 (09:58→19:55)
[2022-01-09] MEDS ORDERED: Furosemide 40 MG/4 ML VIAL IVP SCH (11:15)
[2022-01-09] MEDS: *HR* Dextrose 50 % in Water (Syg) 50 ML SYRINGE IVP PRN (11:30)
[2022-01-09] MEDS ORDERED: Albumin 25% 25gram/100mL 25 GM/100 ML IV.SOLN IVPB ONE (13:25)
[2022-01-09] MEDS: Acetaminophen 325 MG TABLET PO PRN (19:55)
[2022-01-10] MEDS: Ipratropium/Albuterol Neb 3 ML IH SCH ×6 (03:23→23:30)
[2022-01-10 05:23] LABS: Eosinophils % 0.2 %
[2022-01-10 05:25] LABS: Hematocrit 33.4 % (37.5-50.1); Hemoglobin 10.9 g/dL (12.9-16.9); Immature Granulocytes % 0.7 % (0-4); Immature Platelets 23.5 % (1.1-6.1); Lymphocytes # 0.6 K/mcL (0.6-4.6); Lymphocytes % 14.8 %; Mean Corpuscular HGB Conc 32.6 g/dL (31.6-35.5); Mean Corpuscular Hemoglobin 29.7 pg (28.0-33.3); Monocytes # 0.4 K/mcL (0.0-1.3); Monocytes % 8.3 %; Neutrophils # 3.3 K/mcL (1.6-8.9); Red Blood Count 3.67 M/mcL (4.19-5.50); White Blood Count 4.3 K/mcL (4.3-11.1)
[2022-01-10 05:36] LABS: Calcium 8.9 mg/dL (8.6-10.3); Potassium 4.5 mEq/L (3.5-5.1)
[2022-01-10 05:44] LABS: Platelet Count 76 K/mcL (140-400)
[2022-01-10] MEDS: *HR* Heparin 5,000 UNIT/ML VIAL SQ SCH ×2 (06:30→18:05)
[2022-01-10] MEDS: predniSONE 20 MG TABLET PO SCH (08:04)
[2022-01-10] MEDS: Metoprolol XL (24 HR) Succ 25 MG TAB.ER.24H PO SCH ×2 (08:04→21:32)
[2022-01-10] MEDS: Aspirin 325 MG TABLET PO SCH (08:04)
[2022-01-10] MEDS: Azithromycin 250 MG TABLET PO SCH (08:04)
[2022-01-10] MEDS: Pregabalin 75 MG CAPSULE PO SCH ×2 (08:05→21:31)
[2022-01-10] MEDS: cefTRIAXone 1,000 MG in 0.9 % Sodium Chloride 10 ML IVP SCH (08:05)
[2022-01-10] MEDS: Nicotine 7 MG PATCH.TD24 TD SCH (08:05)
[2022-01-10] MEDS: Insulin DETEMIR 100 UNIT/ML X5UNITS SUBQ SCH ×2 (08:06→21:48)
[2022-01-10] MEDS ORDERED: Albumin 25% 25gram/100mL 25 GM/100 ML IV.SOLN IVPB ONE (09:18)
[2022-01-10] MEDS: Furosemide 40 MG/4 ML VIAL IVP SCH (10:37)
[2022-01-10] MEDS: Insulin LISPRO 300 UNITS/3 ML VIAL SUBQ SCH ×4 (11:08→21:32)
[2022-01-10] MEDS ORDERED: Furosemide 40 MG/4 ML VIAL IVP ONE (11:26)
[2022-01-10] MEDS: Acetaminophen 325 MG TABLET PO PRN (14:40)
[2022-01-11] MEDS: Ipratropium/Albuterol Neb 3 ML IH SCH ×6 (04:46→23:08)
[2022-01-11] MEDS: *HR* Heparin 5,000 UNIT/ML VIAL SQ SCH ×2 (06:49→17:04)
[2022-01-11 07:14] LABS: Basophils % 0.2 %; Eosinophils # 0.1 K/mcL (0.0-0.6); Eosinophils % 2.2 %; Hematocrit 32.3 % (37.5-50.1); Hemoglobin 10.4 g/dL (12.9-16.9); Immature Granulocytes % 0.4 % (0-4); Immature Platelets 26.4 % (1.1-6.1); Lymphocytes # 0.8 K/mcL (0.6-4.6); Lymphocytes % 18.1 %; Mean Corpuscular HGB Conc 32.2 g/dL (31.6-35.5); Mean Corpuscular Hemoglobin 29.3 pg (28.0-33.3); Mean Platelet Volume 13.6 fL (9.4-12.4); Monocytes # 0.4 K/mcL (0.0-1.3); Monocytes % 7.5 %; Neutrophils # 3.3 K/mcL (1.6-8.9); Red Blood Count 3.55 M/mcL (4.19-5.50); Red Cell Distribution Width 13.4 % (11.5-14.5); Segmented Neutrophils % 71.6 %; White Blood Count 4.6 K/mcL (4.3-11.1)
[2022-01-11 07:15] LABS: Platelet Count 71 K/mcL (140-400)
[2022-01-11 07:31] LABS: Potassium 4.4 mEq/L (3.5-5.1)
[2022-01-11] MEDS: Pregabalin 75 MG CAPSULE PO SCH ×2 (09:01→21:57)
[2022-01-11] MEDS: Azithromycin 250 MG TABLET PO SCH (09:01)
[2022-01-11] MEDS: predniSONE 20 MG TABLET PO SCH (09:01)
[2022-01-11] MEDS: Nicotine 7 MG PATCH.TD24 TD SCH (09:01)
[2022-01-11] MEDS: Aspirin 325 MG TABLET PO SCH (09:02)
[2022-01-11] MEDS: cefTRIAXone 1,000 MG in 0.9 % Sodium Chloride 10 ML IVP SCH (09:02)
[2022-01-11] MEDS: Metoprolol XL (24 HR) Succ 25 MG TAB.ER.24H PO SCH ×2 (09:02→22:00)
[2022-01-11] MEDS: Furosemide 40 MG/4 ML VIAL IVP SCH ×2 (09:02→22:03)
[2022-01-11] MEDS: Insulin DETEMIR 100 UNIT/ML X5UNITS SUBQ SCH (09:03)
[2022-01-11] MEDS: Insulin LISPRO 300 UNITS/3 ML VIAL SUBQ SCH ×4 (09:03→22:19)
[2022-01-11 18:32] LABS: Alpha 2 Globulin (PEP) 0.96 g/dL (0.48-1.05); Beta Globulin (PEP) 0.71 g/dL (0.48-1.10)
[2022-01-12] MEDS: Insulin DETEMIR 100 UNIT/ML X5UNITS SUBQ SCH ×3 (01:48→20:48)
[2022-01-12] MEDS: Ipratropium/Albuterol Neb 3 ML IH SCH ×6 (04:06→23:25)
[2022-01-12] MEDS: *HR* Heparin 5,000 UNIT/ML VIAL SQ SCH ×2 (06:35→17:08)
[2022-01-12] MEDS ORDERED: Furosemide 40 MG TABLET PO SCH (08:15)
[2022-01-12] MEDS: Aspirin 325 MG TABLET PO SCH (09:00)
[2022-01-12] MEDS: predniSONE 10 MG TABLET PO SCH (09:00)
[2022-01-12] MEDS: Azithromycin 250 MG TABLET PO SCH (09:00)
[2022-01-12] MEDS: Pregabalin 75 MG CAPSULE PO SCH ×2 (09:00→20:48)
[2022-01-12] MEDS: Metoprolol XL (24 HR) Succ 25 MG TAB.ER.24H PO SCH ×2 (09:01→20:49)
[2022-01-12] MEDS: cefTRIAXone 1,000 MG in 0.9 % Sodium Chloride 10 ML IVP SCH (09:01)
[2022-01-12] MEDS: Insulin LISPRO 300 UNITS/3 ML VIAL SUBQ SCH ×4 (09:02→20:49)
[2022-01-12] MEDS: Nicotine 7 MG PATCH.TD24 TD SCH (09:04)
[2022-01-12 10:58] LABS: IFE Reflexed NOT DONE
[2022-01-12 13:28] LABS: Eosinophils % 1.6 %
[2022-01-12 13:30] LABS: Basophils % 0.2 %; Eosinophils # 0.1 K/mcL (0.0-0.6); Hematocrit 35.7 % (37.5-50.1); Hemoglobin 11.5 g/dL (12.9-16.9); Immature Granulocytes % 0.3 % (0-4); Immature Platelets 27.5 % (1.1-6.1); Lymphocytes # 0.6 K/mcL (0.6-4.6); Lymphocytes % 9.8 %; Mean Corpuscular HGB Conc 32.2 g/dL (31.6-35.5); Mean Corpuscular Hemoglobin 29.1 pg (28.0-33.3); Mean Corpuscular Volume 90.4 fL (83.0-100.0); Mean Platelet Volume 13.8 fL (9.4-12.4); Monocytes # 0.5 K/mcL (0.0-1.3); Monocytes % 8.6 %; Red Blood Count 3.95 M/mcL (4.19-5.50); Red Cell Distribution Width 13.3 % (11.5-14.5); Segmented Neutrophils % 79.5 %; White Blood Count 6.3 K/mcL (4.3-11.1)
[2022-01-12 13:32] LABS: Platelet Count 89 K/mcL (140-400)
[2022-01-12 13:50] LABS: Calcium 9.9 mg/dL (8.6-10.3); Potassium 4.8 mEq/L (3.5-5.1)
[2022-01-12] MEDS ORDERED: 0.9 % Sodium Chloride 1,000 ML IVC SCH (14:00)
[2022-01-12] MEDS: *HR* Acetylcysteine 20% 600 MG/3 ML ORAL SYRINGE PO SCH ×2 (14:37→20:48)
[2022-01-12] MEDS ORDERED: *HR* Heparin 10,000 UNIT/10 ML VIAL ONE (15:03)
[2022-01-12] MEDS ORDERED: Nitroglycerin 1,000 MCG/5 ML VIAL IV ONE (15:04)
[2022-01-12] MEDS ORDERED: 0.9 % Sodium Chloride 2,000 ML ONE (15:04)
[2022-01-12] MEDS ORDERED: Iopamidol - 370 200 ML INFUS..BTL ONE (15:04)
[2022-01-12] MEDS ORDERED: Heparin 1,000 UNITS/500 mL 500 ML ONE (15:04)
[2022-01-12] MEDS ORDERED: *HR* FentaNYL (PF) 100 MCG/2 ML VIAL ONE (15:10)
[2022-01-12] MEDS ORDERED: *HR* Midazolam HCl 2 MG/2 ML VIAL ONE (15:10)
[2022-01-12] MEDS: 0.9 % Sodium Chloride 500 ML IVC SCH (17:08)
[2022-01-13 03:27] LABS: Hemoglobin 10.3 g/dL (12.9-16.9); Immature Granulocytes % 0.7 % (0-4)
[2022-01-13 03:29] LABS: Eosinophils # 0.1 K/mcL (0.0-0.6); Eosinophils % 1.7 %; Hematocrit 31.2 % (37.5-50.1); Immature Platelets 26.8 % (1.1-6.1); Lymphocytes # 0.9 K/mcL (0.6-4.6); Lymphocytes % 21.4 %; Mean Corpuscular Hemoglobin 29.4 pg (28.0-33.3); Mean Corpuscular Volume 89.1 fL (83.0-100.0); Monocytes # 0.4 K/mcL (0.0-1.3); Monocytes % 10.1 %; Neutrophils # 2.7 K/mcL (1.6-8.9); Red Cell Distribution Width 13.3 % (11.5-14.5); Segmented Neutrophils % 66.1 %; White Blood Count 4.1 K/mcL (4.3-11.1)
[2022-01-13 03:30] LABS: Platelet Count 79 K/mcL (140-400)
[2022-01-13 03:42] LABS: Calcium 9.1 mg/dL (8.6-10.3); Potassium 4.1 mEq/L (3.5-5.1)
[2022-01-13] MEDS: Ipratropium/Albuterol Neb 3 ML IH SCH ×5 (04:10→20:20)
[2022-01-13 04:31] LABS: ABG Base Excess 0 mEq/L (-2 to 3); ABG HCO3 25 mEq/L (21-27); ABG Oxygen Saturation 80 % (95-98); ABG PCO2 40 mmHg (35-45); ABG PO2 44 mmHg (85-104); ABG TCO2 26 mEq/L (20-26)
[2022-01-13] MEDS: 0.9 % Sodium Chloride 500 ML IVC SCH (06:53)
[2022-01-13] MEDS: *HR* Heparin 5,000 UNIT/ML VIAL SQ SCH ×2 (06:53→17:44)
[2022-01-13] MEDS ORDERED: Gadolinium Contrast Agent (WT Based) IV PRN (09:26)
[2022-01-13] MEDS: Insulin LISPRO 300 UNITS/3 ML VIAL SUBQ SCH ×4 (11:11→21:16)
[2022-01-13] MEDS: Nicotine 7 MG PATCH.TD24 TD SCH (11:20)
[2022-01-13] MEDS: Aspirin 325 MG TABLET PO SCH (11:21)
[2022-01-13] MEDS: Furosemide 40 MG TABLET PO SCH ×2 (11:22→17:44)
[2022-01-13] MEDS: Pregabalin 75 MG CAPSULE PO SCH ×2 (11:22→20:10)
[2022-01-13] MEDS: Azithromycin 250 MG TABLET PO SCH (11:22)
[2022-01-13] MEDS: predniSONE 10 MG TABLET PO SCH (11:22)
[2022-01-13] MEDS: cefTRIAXone 1,000 MG in 0.9 % Sodium Chloride 10 ML IVP SCH (11:23)
[2022-01-13] MEDS ORDERED: Iopamidol - 370 500 ML MLS IVP ONE (12:20)
[2022-01-13] MEDS: Metoprolol XL (24 HR) Succ 25 MG TAB.ER.24H PO SCH ×2 (12:55→20:10)
[2022-01-13 13:04] LABS: Activated Partial Thrombo Time 26.8 Seconds (26.0-36.0)
[2022-01-13] MEDS: Insulin DETEMIR 100 UNIT/ML X5UNITS SUBQ SCH ×2 (13:14→21:15)
[2022-01-13] MEDS: *HR* Acetylcysteine 20% 600 MG/3 ML ORAL SYRINGE PO SCH ×2 (13:25→21:14)
[2022-01-13] MEDS: MethylPREDNISolone 40 MG/ML VIAL IVP SCH ×2 (13:53→20:12)
[2022-01-13] MEDS: Budesonide Neb 0.5 MG/2 ML IH SCH ×2 (14:56→20:20)
[2022-01-13] MEDS ORDERED: GADOBUTROL 30 MMOL/30 ML VIAL IVP ONE (17:48)
[2022-01-13 18:06] LABS: RBC,Pleural Fluid 2000 RBC/mcL
[2022-01-13 18:44] LABS: Glucose,Pleural Fluid 259 mg/dL (No Ref Range); LDH,Pleural Fluid 48 Units/L (No Ref Range); Total Protein,Pleural Fluid < 2.0 g/dL
[2022-01-13 19:00] LABS: Appearance of Pleural Fl Clear (Clear)
[2022-01-13 19:05] LABS: Basophils,Pleural Fluid 0 %; Eosinophils,Pleural Fluid 0 %
[2022-01-13] MEDS: Acetaminophen 325 MG TABLET PO PRN (22:46)
[2022-01-14] MEDS: Ipratropium/Albuterol Neb 3 ML IH SCH ×7 (00:15→23:10)
[2022-01-14 04:45] LABS: Hematocrit 32.2 % (37.5-50.1); Immature Granulocytes % 0.7 % (0-4); Red Cell Distribution Width 13.2 % (11.5-14.5)
[2022-01-14 04:47] LABS: Hemoglobin 10.4 g/dL (12.9-16.9); Immature Platelets 28.9 % (1.1-6.1); Lymphocytes # 0.3 K/mcL (0.6-4.6); Lymphocytes % 5.1 %; Mean Corpuscular HGB Conc 32.3 g/dL (31.6-35.5); Mean Corpuscular Volume 89.7 fL (83.0-100.0); Monocytes # 0.2 K/mcL (0.0-1.3); Monocytes % 3.2 %; Red Blood Count 3.59 M/mcL (4.19-5.50); White Blood Count 5.3 K/mcL (4.3-11.1)
[2022-01-14 04:52] LABS: Calcium 8.9 mg/dL (8.6-10.3); Potassium 4.9 mEq/L (3.5-5.1)
[2022-01-14 04:53] LABS: Platelet Count 84 K/mcL (140-400)
[2022-01-14 04:54] LABS: Neutrophils # 4.8 K/mcL (1.6-8.9)
[2022-01-14] MEDS: MethylPREDNISolone 40 MG/ML VIAL IVP SCH ×3 (06:13→20:24)
[2022-01-14] MEDS: *HR* Heparin 5,000 UNIT/ML VIAL SQ SCH ×2 (06:14→16:43)
[2022-01-14] MEDS: Budesonide Neb 0.5 MG/2 ML IH SCH ×2 (07:41→20:18)
[2022-01-14] MEDS: Pregabalin 75 MG CAPSULE PO SCH ×2 (08:15→20:28)
[2022-01-14] MEDS: Metoprolol XL (24 HR) Succ 25 MG TAB.ER.24H PO SCH ×2 (08:15→20:27)
[2022-01-14] MEDS: Aspirin 325 MG TABLET PO SCH (08:15)
[2022-01-14] MEDS: *HR* Acetylcysteine 20% 600 MG/3 ML ORAL SYRINGE PO SCH ×2 (08:15→20:26)
[2022-01-14] MEDS: Furosemide 40 MG TABLET PO SCH ×2 (08:15→16:43)
[2022-01-14] MEDS: Azithromycin 250 MG TABLET PO SCH (08:15)
[2022-01-14] MEDS: Nicotine 7 MG PATCH.TD24 TD SCH (08:16)
[2022-01-14] MEDS: cefTRIAXone 1,000 MG in 0.9 % Sodium Chloride 10 ML IVP SCH (08:21)
[2022-01-14] MEDS: Insulin DETEMIR 100 UNIT/ML X5UNITS SUBQ SCH ×2 (08:23→20:29)
[2022-01-14] MEDS: Insulin LISPRO 300 UNITS/3 ML VIAL SUBQ SCH ×4 (11:32→20:30)
[2022-01-14] MEDS ORDERED: Capsaicin 0.025% 60 GM TUBE TP PRN (12:42)
[2022-01-14] MEDS: Acetaminophen 325 MG TABLET PO PRN (16:43)
[2022-01-15] MEDS: Acetaminophen 325 MG TABLET PO PRN (03:20)
[2022-01-15] MEDS: Ipratropium/Albuterol Neb 3 ML IH SCH ×6 (04:02→23:06)
[2022-01-15] MEDS: *HR* Heparin 5,000 UNIT/ML VIAL SQ SCH ×2 (05:19→16:37)
[2022-01-15] MEDS: MethylPREDNISolone 40 MG/ML VIAL IVP SCH (05:20)
[2022-01-15 07:34] LABS: Basophils % 0.1 %; Immature Granulocytes % 1.1 % (0-4)
[2022-01-15 07:36] LABS: Hematocrit 33.5 % (37.5-50.1); Immature Platelets 27.1 % (1.1-6.1); Lymphocytes # 0.4 K/mcL (0.6-4.6); Lymphocytes % 4.5 %; Mean Corpuscular HGB Conc 32.8 g/dL (31.6-35.5); Mean Corpuscular Hemoglobin 29.3 pg (28.0-33.3); Mean Corpuscular Volume 89.1 fL (83.0-100.0); Monocytes # 0.4 K/mcL (0.0-1.3); Monocytes % 4.5 %; Red Blood Count 3.76 M/mcL (4.19-5.50); Red Cell Distribution Width 13.5 % (11.5-14.5); Segmented Neutrophils % 89.8 %; White Blood Count 8.3 K/mcL (4.3-11.1)
[2022-01-15 07:39] LABS: Platelet Count 91 K/mcL (140-400)
[2022-01-15 07:40] LABS: Neutrophils # 7.5 K/mcL (1.6-8.9)
[2022-01-15] MEDS: Budesonide Neb 0.5 MG/2 ML IH SCH ×2 (07:41→19:35)
[2022-01-15 07:53] LABS: Calcium 9.1 mg/dL (8.6-10.3); Potassium 5.2 mEq/L (3.5-5.1)
[2022-01-15] MEDS: Nicotine 7 MG PATCH.TD24 TD SCH (08:24)
[2022-01-15] MEDS: Metoprolol XL (24 HR) Succ 25 MG TAB.ER.24H PO SCH ×2 (08:24→20:54)
[2022-01-15] MEDS: Pregabalin 75 MG CAPSULE PO SCH ×2 (08:25→20:54)
[2022-01-15] MEDS: Furosemide 40 MG TABLET PO SCH ×2 (08:25→16:37)
[2022-01-15] MEDS: Azithromycin 250 MG TABLET PO SCH (08:25)
[2022-01-15] MEDS: Aspirin 325 MG TABLET PO SCH (08:25)
[2022-01-15] MEDS: cefTRIAXone 1,000 MG in 0.9 % Sodium Chloride 10 ML IVP SCH (08:27)
[2022-01-15] MEDS: Insulin DETEMIR 100 UNIT/ML X5UNITS SUBQ SCH ×2 (08:37→20:51)
[2022-01-15] MEDS: Insulin LISPRO 300 UNITS/3 ML VIAL SUBQ SCH ×6 (08:38→20:51)
[2022-01-15] MEDS: *HR* HYDROcodone/Acet 5/325 mg TABLET PO PRN ×3 (10:21→22:35)
[2022-01-15] MEDS ORDERED: Baclofen 10 MG TABLET PO PRN ×2 (12:35→14:52)
[2022-01-15 15:43] LABS: Urine Collection Volume NOT PROVIDED mL
[2022-01-16] MEDS: *HR* Acetylcysteine 20% 600 MG/3 ML ORAL SYRINGE PO SCH (01:13)
[2022-01-16 03:00] LABS: Basophils % 0.2 %; Eosinophils # 0.1 K/mcL (0.0-0.6); Eosinophils % 0.6 %; Hemoglobin 10.4 g/dL (12.9-16.9); Immature Granulocytes % 1.3 % (0-4); Immature Platelets 24.1 % (1.1-6.1); Lymphocytes # 1.3 K/mcL (0.6-4.6); Lymphocytes % 15.9 %; Mean Corpuscular HGB Conc 32.5 g/dL (31.6-35.5); Mean Corpuscular Hemoglobin 29.3 pg (28.0-33.3); Mean Corpuscular Volume 90.1 fL (83.0-100.0); Monocytes # 0.6 K/mcL (0.0-1.3); Monocytes % 7.3 %; Neutrophils # 6.1 K/mcL (1.6-8.9); Red Blood Count 3.55 M/mcL (4.19-5.50); Red Cell Distribution Width 13.4 % (11.5-14.5); Segmented Neutrophils % 74.7 %; White Blood Count 8.2 K/mcL (4.3-11.1)
[2022-01-16 03:02] LABS: Platelet Count 88 K/mcL (140-400)
[2022-01-16 03:18] LABS: Calcium 9.3 mg/dL (8.6-10.3); Potassium 4.7 mEq/L (3.5-5.1)
[2022-01-16] MEDS: Ipratropium/Albuterol Neb 3 ML IH SCH ×6 (04:33→23:51)
[2022-01-16] MEDS: *HR* Heparin 5,000 UNIT/ML VIAL SQ SCH ×2 (05:24→17:23)
[2022-01-16] MEDS: *HR* HYDROcodone/Acet 5/325 mg TABLET PO PRN ×2 (05:27→21:55)
[2022-01-16] MEDS: Budesonide Neb 0.5 MG/2 ML IH SCH ×2 (07:14→19:59)
[2022-01-16] MEDS: Insulin LISPRO 300 UNITS/3 ML VIAL SUBQ SCH ×8 (07:30→23:24)
[2022-01-16] MEDS: Nicotine 7 MG PATCH.TD24 TD SCH (10:34)
[2022-01-16] MEDS: Metoprolol XL (24 HR) Succ 25 MG TAB.ER.24H PO SCH ×2 (10:37→21:55)
[2022-01-16] MEDS: Aspirin 325 MG TABLET PO SCH (10:37)
[2022-01-16] MEDS: Insulin DETEMIR 100 UNIT/ML X5UNITS SUBQ SCH ×2 (10:37→23:24)
[2022-01-16] MEDS: predniSONE 20 MG TABLET PO SCH (10:37)
[2022-01-16] MEDS: Furosemide 40 MG TABLET PO SCH (10:37)
[2022-01-16] MEDS: Pregabalin 75 MG CAPSULE PO SCH ×2 (10:37→21:54)
[2022-01-16] MEDS: *HR* Dextrose 50 % in Water (Syg) 50 ML SYRINGE IVP PRN ×2 (11:29→21:56)
[2022-01-16] MEDS ORDERED: Furosemide 20 MG/2 ML VIAL IVP SCH ×2 (11:30→21:00)
[2022-01-16] MEDS: Isosorbide MONOnitrate (24 HR) 30 MG TAB.ER.24H PO SCH (12:46)
[2022-01-16] MEDS: 0.9 % Sodium Chloride 500 ML IVC SCH ×2 (15:42→15:43)
[2022-01-16] MEDS: hydrALAZINE 25 MG TABLET PO SCH (17:22)
[2022-01-17] MEDS: hydrALAZINE 25 MG TABLET PO SCH ×3 (00:37→17:59)
[2022-01-17] MEDS: Ipratropium/Albuterol Neb 3 ML IH SCH ×6 (03:23→23:05)
[2022-01-17] MEDS: *HR* Heparin 5,000 UNIT/ML VIAL SQ SCH ×2 (05:48→17:37)
[2022-01-17] MEDS: Budesonide Neb 0.5 MG/2 ML IH SCH ×2 (07:38→20:08)
[2022-01-17] MEDS: Insulin DETEMIR 100 UNIT/ML X5UNITS SUBQ SCH ×2 (08:05→20:37)
[2022-01-17] MEDS: Aspirin 325 MG TABLET PO SCH (08:06)
[2022-01-17] MEDS: Metoprolol XL (24 HR) Succ 25 MG TAB.ER.24H PO SCH ×2 (08:06→20:35)
[2022-01-17] MEDS: Isosorbide MONOnitrate (24 HR) 30 MG TAB.ER.24H PO SCH (08:06)
[2022-01-17] MEDS: predniSONE 20 MG TABLET PO SCH (08:06)
[2022-01-17] MEDS: Pregabalin 75 MG CAPSULE PO SCH ×2 (08:07→20:35)
[2022-01-17] MEDS: Nicotine 7 MG PATCH.TD24 TD SCH (08:07)
[2022-01-17] MEDS: Insulin LISPRO 300 UNITS/3 ML VIAL SUBQ SCH ×7 (08:08→20:34)
[2022-01-17] MEDS: *HR* HYDROcodone/Acet 5/325 mg TABLET PO PRN ×2 (08:32→20:46)
[2022-01-17 09:15] LABS: Basophils % 0.4 %
[2022-01-17 09:20] LABS: Eosinophils # 0.1 K/mcL (0.0-0.6); Eosinophils % 1.5 %; Hematocrit 35.7 % (37.5-50.1); Hemoglobin 11.2 g/dL (12.9-16.9); Immature Granulocytes % 0.9 % (0-4); Lymphocytes % 17.2 %; Mean Corpuscular HGB Conc 31.4 g/dL (31.6-35.5); Mean Corpuscular Hemoglobin 28.6 pg (28.0-33.3); Mean Corpuscular Volume 91.3 fL (83.0-100.0); Mean Platelet Volume 14.2 fL (9.4-12.4); Monocytes # 0.3 K/mcL (0.0-1.3); Neutrophils # 4.1 K/mcL (1.6-8.9); Red Blood Count 3.91 M/mcL (4.19-5.50); Red Cell Distribution Width 13.7 % (11.5-14.5); White Blood Count 5.5 K/mcL (4.3-11.1)
[2022-01-17 09:21] LABS: Platelet Count 81 K/mcL (140-400)
[2022-01-17 09:31] LABS: Calcium 9.5 mg/dL (8.6-10.3); Potassium 4.6 mEq/L (3.5-5.1)
[2022-01-17] MEDS ORDERED: *HR* FentaNYL (PF) 100 MCG/2 ML VIAL ONE (14:05)
[2022-01-17] MEDS ORDERED: *HR* Midazolam HCl 2 MG/2 ML VIAL ONE (14:05)
[2022-01-17] MEDS ORDERED: *HR* Heparin 10,000 UNIT/10 ML VIAL ONE (14:05)
[2022-01-17] MEDS ORDERED: 0.9 % Sodium Chloride 1,000 ML ONE (14:05)
[2022-01-17] MEDS ORDERED: Iopamidol - 370 200 ML INFUS..BTL ONE (14:06)
[2022-01-17] MEDS ORDERED: Heparin 1,000 UNITS/500 mL 0 ML ONE (14:06)
[2022-01-17] MEDS ORDERED: Nitroglycerin 1,000 MCG/5 ML VIAL IV ONE (14:06)
[2022-01-17] MEDS ORDERED: *HR* Bivalirudin 250 MG VIAL IVC ONE (14:51)
[2022-01-17] MEDS: Furosemide 20 MG TABLET PO SCH (17:36)
[2022-01-18] MEDS: hydrALAZINE 25 MG TABLET PO SCH ×3 (00:04→17:29)
[2022-01-18] MEDS: Ipratropium/Albuterol Neb 3 ML IH SCH ×6 (03:54→23:43)
[2022-01-18] MEDS: *HR* HYDROcodone/Acet 5/325 mg TABLET PO PRN ×2 (05:39→17:30)
[2022-01-18] MEDS: *HR* Heparin 5,000 UNIT/ML VIAL SQ SCH ×2 (05:39→20:22)
[2022-01-18 07:30] LABS: Cholesterol,Body Fluid 18 mg/dL; Fluid Source for Cholesterol PLEURAL FLUID
[2022-01-18] MEDS: Budesonide Neb 0.5 MG/2 ML IH SCH ×2 (07:33→23:43)
[2022-01-18] MEDS: Aspirin 325 MG TABLET PO SCH (08:34)
[2022-01-18] MEDS: predniSONE 20 MG TABLET PO SCH (08:35)
[2022-01-18] MEDS: Pregabalin 75 MG CAPSULE PO SCH ×2 (08:35→20:01)
[2022-01-18] MEDS: Nicotine 7 MG PATCH.TD24 TD SCH (08:35)
[2022-01-18] MEDS: Metoprolol XL (24 HR) Succ 25 MG TAB.ER.24H PO SCH ×2 (08:36→20:01)
[2022-01-18] MEDS: Isosorbide MONOnitrate (24 HR) 30 MG TAB.ER.24H PO SCH (08:36)
[2022-01-18] MEDS: Furosemide 20 MG TABLET PO SCH ×2 (08:36→17:29)
[2022-01-18] MEDS: Insulin DETEMIR 100 UNIT/ML X5UNITS SUBQ SCH ×2 (08:42→20:02)
[2022-01-18] MEDS: Insulin LISPRO 300 UNITS/3 ML VIAL SUBQ SCH ×4 (08:43→20:01)
[2022-01-18 11:48] LABS: Hemoglobin 10.4 g/dL (12.9-16.9); Red Cell Distribution Width 13.5 % (11.5-14.5)
[2022-01-18 11:50] LABS: Eosinophils % 0.6 %; Hematocrit 32.2 % (37.5-50.1); Immature Granulocytes % 0.9 % (0-4); Immature Platelets 21.2 % (1.1-6.1); Lymphocytes # 0.7 K/mcL (0.6-4.6); Lymphocytes % 10.4 %; Mean Corpuscular HGB Conc 32.3 g/dL (31.6-35.5); Mean Corpuscular Hemoglobin 28.9 pg (28.0-33.3); Mean Corpuscular Volume 89.4 fL (83.0-100.0); Monocytes # 0.3 K/mcL (0.0-1.3); Monocytes % 4.2 %; Neutrophils # 5.5 K/mcL (1.6-8.9); Platelet Count 86 K/mcL (140-400); Segmented Neutrophils % 83.9 %; White Blood Count 6.6 K/mcL (4.3-11.1)
[2022-01-18 12:06] LABS: Calcium 9.4 mg/dL (8.6-10.3); Potassium 4.7 mEq/L (3.5-5.1)
[2022-01-18] MEDS ORDERED: Heparin 1,000 UNITS/500 mL 500 ML ONE (13:45)
[2022-01-18] MEDS ORDERED: 0.9 % Sodium Chloride 2,000 ML ONE (13:45)
[2022-01-18] MEDS ORDERED: *HR* Heparin 10,000 UNIT/10 ML VIAL ONE (13:45)
[2022-01-18] MEDS ORDERED: Nitroglycerin 1,000 MCG/5 ML VIAL IV ONE (13:45)
[2022-01-18] MEDS ORDERED: Iopamidol - 370 200 ML INFUS..BTL ONE (13:45)
[2022-01-18] MEDS ORDERED: *HR* Midazolam HCl 2 MG/2 ML VIAL ONE ×2 (14:50→15:33)
[2022-01-18] MEDS ORDERED: *HR* FentaNYL (PF) 100 MCG/2 ML VIAL ONE (14:50)
[2022-01-19] MEDS: *HR* HYDROcodone/Acet 5/325 mg TABLET PO PRN ×3 (01:11→18:24)
[2022-01-19] MEDS: hydrALAZINE 25 MG TABLET PO SCH ×3 (01:13→18:24)
[2022-01-19] MEDS ORDERED: Morphine Sulfate 2 MG/ML SYRINGE IVP ONE (02:01)
[2022-01-19 03:19] LABS: Basophils % 0.1 %; Eosinophils % 0.1 %; Mean Corpuscular Volume 90.2 fL (83.0-100.0)
[2022-01-19 03:21] LABS: Hematocrit 33.9 % (37.5-50.1); Hemoglobin 10.7 g/dL (12.9-16.9); Immature Platelets 20.5 % (1.1-6.1); Lymphocytes # 0.7 K/mcL (0.6-4.6); Lymphocytes % 9.7 %; Mean Corpuscular HGB Conc 31.6 g/dL (31.6-35.5); Mean Corpuscular Hemoglobin 28.5 pg (28.0-33.3); Mean Platelet Volume 13.6 fL (9.4-12.4); Monocytes # 0.4 K/mcL (0.0-1.3); Neutrophils # 6.1 K/mcL (1.6-8.9); Red Blood Count 3.76 M/mcL (4.19-5.50); Red Cell Distribution Width 13.7 % (11.5-14.5); Segmented Neutrophils % 84.1 %; White Blood Count 7.2 K/mcL (4.3-11.1)
[2022-01-19 03:39] VITALS: BP 129/57; PULSE 78; TEMP 97.5
[2022-01-19 03:42] LABS: Calcium 9.2 mg/dL (8.6-10.3); Potassium 4.7 mEq/L (3.5-5.1)
[2022-01-19 03:45] LABS: Platelet Count 93 K/mcL (140-400)
[2022-01-19] MEDS: Ipratropium/Albuterol Neb 3 ML IH SCH ×4 (03:54→15:29)
[2022-01-19] MEDS: *HR* Heparin 5,000 UNIT/ML VIAL SQ SCH ×2 (05:34→19:02)
[2022-01-19] MEDS: Budesonide Neb 0.5 MG/2 ML IH SCH (07:28)
[2022-01-19] MEDS: Isosorbide MONOnitrate (24 HR) 30 MG TAB.ER.24H PO SCH (08:11)
[2022-01-19] MEDS: Pregabalin 75 MG CAPSULE PO SCH (08:12)
[2022-01-19] MEDS: Metoprolol XL (24 HR) Succ 25 MG TAB.ER.24H PO SCH (08:12)
[2022-01-19] MEDS: Aspirin 325 MG TABLET PO SCH (08:12)
[2022-01-19] MEDS: Nicotine 7 MG PATCH.TD24 TD SCH (08:12)
[2022-01-19] MEDS: Furosemide 20 MG TABLET PO SCH ×2 (08:12→18:24)
[2022-01-19] MEDS: Insulin LISPRO 300 UNITS/3 ML VIAL SUBQ SCH ×3 (08:13→18:26)
[2022-01-19] MEDS ORDERED: predniSONE 20 MG TABLET PO SCH (09:00)
[2022-01-19] MEDS: Insulin DETEMIR 100 UNIT/ML X5UNITS SUBQ SCH (09:10)
[2022-01-19 15:32] VITALS: O2SAT 95
== END 2022-01-19 19:34 | disposition home health service (06) | DRG 246 ==
LOC: 3NENU → SUATTDRO 17:51
PROVIDERS: ADMIT Student in an Organized Health Care Education/Training Program; ATTEND Internal Medicine

== ENCOUNTER 2022-02-04 11:22 | Inpatient (IN) ==
[2022-02-04] MEDS ORDERED: MOM Conc 10 ML UD.LIQ PO PRN (15:20)
[2022-02-04] MEDS ORDERED: D5% in Water 1,000 ML IVC PRN (15:20)
[2022-02-04] MEDS ORDERED: Mag Hydrox/Al Hydrox/Simeth 30 ML UDC PO PRN (15:20)
[2022-02-04] MEDS ORDERED: Acetaminophen 325 MG TABLET PO PRN (15:20)
[2022-02-04] MEDS ORDERED: *HR* Dextrose 50 % in Water (Syg) 50 ML SYRINGE IVP PRN (15:20)
[2022-02-04] MEDS ORDERED: Dextrose Gel 15 GM/37.5 ML TUBE PO PRN ×2 (15:20)
[2022-02-04] MEDS ORDERED: Ondansetron 4 MG/2 ML VIAL IVP PRN (15:20)
[2022-02-04] MEDS ORDERED: Naloxone 0.4 MG/ML INJ IVP PRN (15:20)
[2022-02-04] MEDS: Insulin LISPRO 300 UNITS/3 ML VIAL SUBQ SCH ×2 (16:11→20:05)
[2022-02-04] MEDS ORDERED: Furosemide 20 MG/2 ML VIAL IVP ONE (16:24)
[2022-02-04] MEDS: Aspirin 325 MG TABLET PO SCH (17:02)
[2022-02-04] MEDS ORDERED: Ipratropium/Albuterol Neb 3 ML IH PRN (18:39)
[2022-02-04] MEDS: Pregabalin 75 MG CAPSULE PO SCH (20:04)
[2022-02-04] MEDS: *HR* HYDROcodone/Acet 5/325 mg TABLET PO PRN (20:04)
[2022-02-04] MEDS: Metoprolol XL (24 HR) Succ 25 MG TAB.ER.24H PO SCH (20:04)
[2022-02-04] MEDS: Nicotine 21 MG PATCH.TD24 TD SCH (20:04)
[2022-02-05 05:06] LABS: Hemoglobin 11.2 g/dL (12.9-16.9)
[2022-02-05 05:08] LABS: Hematocrit 34.9 % (37.5-50.1); Immature Platelets 14.7 % (1.1-6.1); Mean Corpuscular HGB Conc 32.1 g/dL (31.6-35.5); Mean Corpuscular Volume 87.3 fL (83.0-100.0); Mean Platelet Volume 12.9 fL (9.4-12.4)
[2022-02-05 05:26] LABS: Magnesium 2.2 mg/dL (1.6-2.6); Potassium 5.1 mEq/L (3.5-5.1)
[2022-02-05] MEDS: *HR* HYDROcodone/Acet 5/325 mg TABLET PO PRN ×3 (05:26→20:39)
[2022-02-05] MEDS: Nicotine 21 MG PATCH.TD24 TD SCH (08:22)
[2022-02-05] MEDS: Metoprolol XL (24 HR) Succ 25 MG TAB.ER.24H PO SCH ×2 (08:22→20:40)
[2022-02-05] MEDS: Isosorbide MONOnitrate (24 HR) 30 MG TAB.ER.24H PO SCH (08:22)
[2022-02-05] MEDS: Pregabalin 75 MG CAPSULE PO SCH ×2 (08:22→20:40)
[2022-02-05] MEDS: Aspirin 325 MG TABLET PO SCH (08:22)
[2022-02-05] MEDS: Furosemide 20 MG/2 ML VIAL IVP SCH ×2 (08:23→20:40)
[2022-02-05] MEDS: Insulin LISPRO 300 UNITS/3 ML VIAL SUBQ SCH ×4 (08:23→21:24)
[2022-02-05] MEDS: *HR* Enoxaparin 40 MG/0.4 ML SYRINGE SQ SCH (08:30)
[2022-02-05] MEDS: Melatonin 3 MG TABLET PO PRN (20:49)
[2022-02-05] MEDS: Insulin DETEMIR 100 UNIT/ML X5UNITS SUBQ SCH (21:24)
[2022-02-06 04:42] LABS: Basophils % 0.7 %; Eosinophils # 0.1 K/mcL (0.0-0.6); Eosinophils % 1.6 %; Hematocrit 31.4 % (37.5-50.1); Hemoglobin 10.1 g/dL (12.9-16.9); Immature Granulocytes % 0.2 % (0-4); Immature Platelets 14.9 % (1.1-6.1); Lymphocytes % 21.4 %; Mean Corpuscular HGB Conc 32.2 g/dL (31.6-35.5); Mean Corpuscular Hemoglobin 28.3 pg (28.0-33.3); Mean Platelet Volume 13.3 fL (9.4-12.4); Monocytes # 0.4 K/mcL (0.0-1.3); Monocytes % 7.9 %; Platelet Count 137 K/mcL (140-400); Red Blood Count 3.57 M/mcL (4.19-5.50); Red Cell Distribution Width 14.1 % (11.5-14.5); Segmented Neutrophils % 68.2 %; White Blood Count 4.4 K/mcL (4.3-11.1)
[2022-02-06 05:04] LABS: Potassium 4.6 mEq/L (3.5-5.1)
[2022-02-06] MEDS: *HR* Enoxaparin 40 MG/0.4 ML SYRINGE SQ SCH (06:33)
[2022-02-06] MEDS: Metoprolol XL (24 HR) Succ 25 MG TAB.ER.24H PO SCH ×2 (08:03→21:27)
[2022-02-06] MEDS: Isosorbide MONOnitrate (24 HR) 30 MG TAB.ER.24H PO SCH (08:03)
[2022-02-06] MEDS: Aspirin 325 MG TABLET PO SCH (08:03)
[2022-02-06] MEDS: Pregabalin 75 MG CAPSULE PO SCH ×2 (08:03→21:27)
[2022-02-06] MEDS: Furosemide 20 MG/2 ML VIAL IVP SCH (08:03)
[2022-02-06] MEDS: Insulin LISPRO 300 UNITS/3 ML VIAL SUBQ SCH ×4 (08:04→21:28)
[2022-02-06] MEDS: *HR* HYDROcodone/Acet 5/325 mg TABLET PO PRN ×2 (08:08→21:27)
[2022-02-06] MEDS: Nicotine 21 MG PATCH.TD24 TD SCH (09:00)
[2022-02-06] MEDS: Ipratropium/Albuterol Neb 3 ML IH SCH ×4 (10:23→21:18)
[2022-02-06] MEDS ORDERED: Furosemide 40 MG/4 ML VIAL IVP SCH (21:00)
[2022-02-06] MEDS: Insulin DETEMIR 100 UNIT/ML X5UNITS SUBQ SCH (21:27)
[2022-02-06] MEDS: Melatonin 3 MG TABLET PO PRN (21:27)
[2022-02-07] MEDS: Ipratropium/Albuterol Neb 3 ML IH SCH ×4 (04:03→22:02)
[2022-02-07] MEDS: *HR* Enoxaparin 40 MG/0.4 ML SYRINGE SQ SCH (05:31)
[2022-02-07 05:50] LABS: Basophils % 0.5 %; Eosinophils % 1.8 %; Hemoglobin 10.7 g/dL (12.9-16.9)
[2022-02-07 05:52] LABS: Eosinophils # 0.1 K/mcL (0.0-0.6); Hematocrit 32.9 % (37.5-50.1); Immature Granulocytes % 0.3 % (0-4); Immature Platelets 14.6 % (1.1-6.1); Lymphocytes % 26.6 %; Mean Corpuscular HGB Conc 32.5 g/dL (31.6-35.5); Mean Corpuscular Hemoglobin 28.2 pg (28.0-33.3); Mean Corpuscular Volume 86.8 fL (83.0-100.0); Monocytes # 0.3 K/mcL (0.0-1.3); Platelet Count 147 K/mcL (140-400); Red Blood Count 3.79 M/mcL (4.19-5.50); Segmented Neutrophils % 61.8 %; White Blood Count 3.8 K/mcL (4.3-11.1)
[2022-02-07 05:54] LABS: Neutrophils # 2.4 K/mcL (1.6-8.9)
[2022-02-07 06:06] LABS: Calcium 9.3 mg/dL (8.6-10.3); Potassium 4.6 mEq/L (3.5-5.1)
[2022-02-07] MEDS: Metoprolol XL (24 HR) Succ 25 MG TAB.ER.24H PO SCH ×2 (08:07→20:35)
[2022-02-07] MEDS: Nicotine 21 MG PATCH.TD24 TD SCH (08:07)
[2022-02-07] MEDS: Isosorbide MONOnitrate (24 HR) 30 MG TAB.ER.24H PO SCH (08:07)
[2022-02-07] MEDS: Aspirin Enteric Coated 81 MG Tablet PO SCH (08:07)
[2022-02-07] MEDS: Insulin LISPRO 300 UNITS/3 ML VIAL SUBQ SCH ×4 (08:09→20:36)
[2022-02-07] MEDS: *HR* HYDROcodone/Acet 5/325 mg TABLET PO PRN (18:15)
[2022-02-07] MEDS: Melatonin 3 MG TABLET PO PRN (20:35)
[2022-02-07] MEDS: Insulin DETEMIR 100 UNIT/ML X5UNITS SUBQ SCH ×2 (20:37→21:09)
[2022-02-07] MEDS ORDERED: Insulin LISPRO 300 UNITS/3 ML VIAL SUBQ SCH (21:00)
[2022-02-08 03:02] LABS: Basophils % 0.6 %; Eosinophils # 0.1 K/mcL (0.0-0.6); Eosinophils % 1.9 %; Hematocrit 29.7 % (37.5-50.1); Hemoglobin 9.7 g/dL (12.9-16.9); Immature Granulocytes % 0.3 % (0-4); Lymphocytes # 0.9 K/mcL (0.6-4.6); Lymphocytes % 28.3 %; Mean Corpuscular HGB Conc 32.7 g/dL (31.6-35.5); Mean Corpuscular Hemoglobin 28.2 pg (28.0-33.3); Mean Corpuscular Volume 86.3 fL (83.0-100.0); Monocytes # 0.3 K/mcL (0.0-1.3); Monocytes % 10.2 %; Neutrophils # 1.8 K/mcL (1.6-8.9); Platelet Count 143 K/mcL (140-400); Red Blood Count 3.44 M/mcL (4.19-5.50); Red Cell Distribution Width 13.8 % (11.5-14.5); Segmented Neutrophils % 58.7 %; White Blood Count 3.1 K/mcL (4.3-11.1)
[2022-02-08 03:27] LABS: Calcium 8.9 mg/dL (8.6-10.3); Potassium 4.8 mEq/L (3.5-5.1)
[2022-02-08] MEDS: Ipratropium/Albuterol Neb 3 ML IH SCH ×3 (04:30→16:05)
[2022-02-08] MEDS: *HR* Enoxaparin 40 MG/0.4 ML SYRINGE SQ SCH (05:41)
[2022-02-08 07:44] VITALS: BP 154/65; PULSE 87; TEMP 98.1; O2SAT 93
[2022-02-08] MEDS: Aspirin Enteric Coated 81 MG Tablet PO SCH (07:59)
[2022-02-08] MEDS: Metoprolol XL (24 HR) Succ 25 MG TAB.ER.24H PO SCH (07:59)
[2022-02-08] MEDS: Nicotine 21 MG PATCH.TD24 TD SCH (07:59)
[2022-02-08] MEDS: Isosorbide MONOnitrate (24 HR) 30 MG TAB.ER.24H PO SCH (07:59)
[2022-02-08] MEDS: Insulin LISPRO 300 UNITS/3 ML VIAL SUBQ SCH ×3 (08:00→17:46)
[2022-02-08] MEDS: Insulin DETEMIR 100 UNIT/ML X5UNITS SUBQ SCH (08:13)
[2022-02-08] MEDS ORDERED: Pregabalin 75 MG CAPSULE PO SCH (09:00)
[2022-02-08] MEDS: *HR* HYDROcodone/Acet 5/325 mg TABLET PO PRN (17:46)
== END 2022-02-08 19:13 | disposition home health service (06) | DRG 291 ==
LOC: INTOOBSV 15:15 → SUATTDRO 15:15 → 2NNU 15:15 → 2NENU 02-05 17:43
PROVIDERS: ADMIT Internal Medicine; ATTEND Student in an Organized Health Care Education/Training Program